=== PATIENT | male | born 1985 ===

== ENCOUNTER 2018-11-13 18:09 | Emergency (ER) | payer SELFPAY ==
--- NOTE | 2018-11-13 18:37 | EN ---
Date/Time of Note Date/Time of Note DATE: 11/13/18 TIME: 18:36 ER Progress Note The patient eloped from the ER after arrival. He was not seen by me or any other provider TERESA MCKINLEY DO Nov 13, 2018 18:37
== END 2018-11-13 18:30 | disposition left against medical advice (07) ==
LOC: E/R 18:09
DX: Z53.21 Procedure and treatment not carried out due to patient leaving prior to being seen by health care provider (principal)